=== PATIENT | male | born 1940 | race Caucasian/White ===

== ENCOUNTER 2022-11-01 11:15 | Outpatient (REF) | payer MEDICARE, SELFPAY ==
[2022-11-01 12:31] LABS: Influenza Type A Negative (Negative); Influenza Type B Negative (Negative)
== END 2022-11-01 11:16 | disposition home or self-care (01) ==
LOC: NPINS 11:15
PROVIDERS: PCP Family Medicine; Visit Provider Family Medicine
DX: R09.81 Nasal congestion (principal)
CPT/HCPCS: 87804